=== PATIENT | female | born 1960 | race Caucasian/White ===

== ENCOUNTER → 2025-03-16 09:47 | Outpatient (REF) | payer OTHER, SELFPAY | LOC: HWWDC 09:47 | PROVIDERS: ATTENDING PHYSICIAN Hospitalist | DX: Z12.31 Encounter for screening mammogram for malignant neoplasm of breast (principal) | CPT/HCPCS: 77063; 77067 ==

== ENCOUNTER → 2025-04-04 16:41 | Outpatient (REF) | payer OTHER, SELFPAY ==
[2025-04-04 17:47] LABS: D-Dimer < 0.27 ug/mlFEU (0.00-0.50)
== END ==
LOC: REG 16:41
PROVIDERS: ATTENDING PHYSICIAN Hospitalist
DX: R60.0 Localized edema (principal)
CPT/HCPCS: 36415; 85379